=== PATIENT | female | born 1960 | race Caucasian/White ===

== ENCOUNTER 2018-02-08 07:14 | Outpatient (CLI) | payer MEDICAID ==
[~2018-02-08 07:14] MED LIST: ACYC400T21 PO; HYDR-569 PO; LIDO20SO16 PO; LISI-643 PO; NAPR-56 PO; ONDA4TAB12 PO; ONDA4TAB6 PO
[2018-02-08 07:40] LABS: BASOPHILS % (AUTO) 0.4 % (0-1); EOSINOPHILS # (AUTO) 0.1 X10'3 (0-0.9); EOSINOPHILS % (AUTO) 2.4 % (0-6); HEMATOCRIT 42.2 % (35.0-45.0); HEMOGLOBIN 14.8 g/dl (12.0-16.0); LYMPHOCYTES % (AUTO) 33.3 % (21-51); MEAN CORPUSCULAR HEMOGLOBIN 33.5 PG (27.0-31.0); MEAN CORPUSCULAR HGB CONC 35.2 % (33.0-36.5); MEAN CORPUSCULAR VOLUME 95.3 FL (78-98); MEAN PLATELET VOLUME 7.5 FL (7.4-10.4); MONOCYTES # (AUTO) 0.3 X10'3 (0-0.9); MONOCYTES % (AUTO) 4.5 % (2-12); NEUTROPHILS # (AUTO) 3.5 X10'3 (1.8-7.7); NEUTROPHILS % (AUTO) 59.4 % (42-75); PLATELET COUNT 246 X10'3 (140-440); RED BLOOD COUNT 4.43 X10'6 (4.20-5.60); RED CELL DISTRIBUTION WIDTH 13.3 % (11.5-14.5); WHITE BLOOD COUNT 5.9 X10'3 (4.5-11.0)
[2018-02-08 07:45] LABS: CLARITY,URINE SLIGHTLY CLOUDY (Clear); COLOR,URINE YELLOW (Yellow); GLUCOSE, URINE NEGATIVE (Neg); KETONES,URINE NEGATIVE (Neg); LEUKOCYTE ESTERASE ,URINE NEGATIVE (Neg); NITRITES, URINE NEGATIVE (Neg); OCCULT BLOOD,URINE NEGATIVE (Neg); PROTEIN,URINE NEGATIVE (Neg); UROBILINOGEN,URINE 0.2 E.U/dL (0.2-1.0)
[2018-02-08 07:46] LABS: UA COLLECTION TYPE CLN CATCH MIDSTREAM
[2018-02-08 07:49] LABS: BACTERIA,URINE FEW /HPF (Neg); MUCUS STRANDS FEW /LPF (Neg); RBC,URINE 0-2 /HPF (0-2); SQUAMOUS EPITHELIAL CELL,UR FEW /LPF (FEW); WBC,URINE 0-4 /HPF (0-4)
[2018-02-08 08:25] LABS: ANION GAP 9 (8-16); CHLORIDE 107 MMOL/L (99-107); GLUCOSE 95 MG/DL (70-104); POTASSIUM 3.9 MMOL/L (3.5-5.1); SODIUM 140 MMOL/L (135-145); TOTAL CARBON DIOXIDE 23.7 MMOL/L (24-32)
[2018-02-08 08:26] LABS: ALANINE AMINOTRANSFERASE 19 U/L (12-78); ALBUMIN 4.1 G/DL (3.4-5.0); ALBUMIN/GLOBULIN RATIO 1.1 (1.1-1.5); ALKALINE PHOSPHATASE 52 IU/L (46-116); ASPARTATE AMINO TRANSFERASE 14 U/L (10-37); BILIRUBIN,TOTAL 0.3 MG/DL (0.1-1.0); BLOOD UREA NITROGEN 20 MG/DL (7-18); CALCIUM 8.9 MG/DL (8.5-10.1); CHOL/HDL RATIO 4.7 (0.00-4.99); CHOLESTEROL 256 MG/DL (0-200); CREATININE 0.87 MG/DL (0.40-0.90); HDL CHOLESTEROL 55 MG/DL (35-60); LDL CHOLESTEROL 179 MG/DL (50-100); TOTAL PROTEIN 7.8 G/DL (6.4-8.2); TRIGLYCERIDES 139 MG/DL (20-135); eGFR 67 ML/MIN
[2018-02-12] MEDS ORDERED: VALA10002 PO (17:01)
[2018-02-12] MEDS ORDERED: GABA-530 PO (17:01)
== END 2018-02-08 23:59 | disposition home or self-care (01) ==
LOC: LAB 07:14
PROVIDERS: ATTEND Physician Assistant
DX: I10 Essential (primary) hypertension (principal); J44.9 Chronic obstructive pulmonary disease, unspecified; F17.200 Nicotine dependence, unspecified, uncomplicated
CPT/HCPCS: 36415; 80053; 80061; 81001; 84439; 84443; 85025

== ENCOUNTER 2019-02-23 10:15 | Outpatient (CLI) | payer MEDICAID ==
[~2019-02-23 10:15] MED LIST changes: +GABA-530 PO; +HYDR-4383 PO; -HYDR-569 PO; +VALA10002 PO
== END 2019-02-23 23:59 | disposition home or self-care (01) ==
LOC: RAD 10:15
DX: R55 Syncope and collapse (principal)
CPT/HCPCS: 95819